=== PATIENT | female | born 1995 | race Two or more races ===

== ENCOUNTER 2025-06-12 16:17 | Emergency (ER) | payer OTHER, SELFPAY ==
[2025-06-12 16:17] VITALS: BMI 31.8
[2025-06-12 16:26] VITALS: BP 135/84; PULSE 62; RESP 16; TEMP 36.7; O2SAT 96
--- NOTE | 2025-06-12 16:40 | PD.EDSKIN ---
ED Skin Abcess FB-RME/HPI General Chief complaint: Skin/Abscess/Foreign Body Stated complaint: FLAIR UP OF ECZEMA Time Seen by Provider: 06/12/25 16:24 Arrival date/time: 06/12/25 16:17 RME / HPI RME / HPI narrative: 30-year-old female patient came in for evaluation regarding rashes noted on the bilateral upper extremity and lateral neck. Patient has significant history of eczema, the last time she had a flareup was several years ago. This time associated with itchiness, and rashes. Denies any difficulty swallowing denies any sore throat denies any shortness of breath. Denies any other complaints. No medication was taken prior to arrival Related Data Home Medications ?Medication ?Instructions ?Recorded ?Confirmed Vitamin * 1 tab PO QDAY #0 tabs 04/16/15 10/18/19 ferrous sulfate 325 mg (65 mg 325 mg PO BIDWM #0 tabs 04/16/15 10/18/19 iron) tablet (Feosol) Previous Rx's ?Medication ?Instructions ?Recorded diphenhydramine HCl 50 mg tablet 50 mg PO TID PRN allergic reaction 06/12/25 (Benadryl Allergy) #30 tabs prednisone 50 mg tablet 50 mg PO QDAY #7 tabs 06/12/25 Allergies Allergy/AdvReac Type Severity Reaction Status Date / Time No Known Allergies Allergy Verified 06/12/25 16:18 Review of Systems Review of Systems Narrative Review of Systems: Review of system reviewed and within normal limits except mentioned in HPI ED Exam Narrative Physical exam: VITAL SIGNS: Reviewed. GENERAL APPEARANCE: Alert and interactive, follows commands, no acute distress, HEAD AND FACE: Non-traumatic. ENT: PERRL, pink conjunctivitis, eyelid no trauma, Mucous membrane moist. NECK: Supple, nontender, no nuchal rigidity. CHEST: No tenderness, no crepitus, no paradoxical movement, no retractions. LUNGS: Clear, well ventilated, symmetric, no rales, no wheezing, no ronchi, no stridor, good breath sounds bilaterally. HEART: Regular rate, regular rhythm, no murmur, no gallops. ABDOMEN: Soft, positive bowel sounds, nondistended, no guarding, nontender, no rebound, no masses, RECTAL: Deferred. GENITAL: Deferred. NEUROLOGICAL: Gross motor function intact sensory function intact, Appropriate for age. MUSCULOSKELETAL: low back nontender, full range of motion. EXTREMITIES: Nontender, full range of motion. SKIN: Color pink, dry, + erythematous rashes on the bilateral upper extremity and lateral leg, no lacerations, no abrasions, no contusions. LYMPHATICS: Deferred. Course Quality Measures none Orders Category Date Time Status Dexamethasone Inj [Decadron Inj] Med 06/12/25 16:40 Discontinued 10 mg IM X1 ONE DiphenhydrAMINE [Benadryl] Med 06/12/25 16:40 Discontinued 50 mg PO X1 ONE Famotidine [Pepcid] Med 06/12/25 16:40 Discontinued 40 mg PO X1 ONE Vital Signs Vital signs: Vital Signs Temperature 98.0 F 06/12/25 16:26 Pulse Rate 62 06/12/25 16:26 Respiratory Rate 16 06/12/25 16:26 Blood Pressure 135/84 H 06/12/25 16:26 Pulse Oximetry (%) 96 06/12/25 16:26 Oxygen Delivery Method Room Air 06/12/25 16:26 Skin / Abscess / Foreign Body MDM Narrative MDM Narrative:: 30-year-old female patient came in for evaluation regarding rashes noted on the bilateral upper extremity and lateral neck. Patient has significant history of eczema, the last time she had a flareup was several years ago. This time associated with itchiness, and rashes. Denies any difficulty swallowing denies any sore throat denies any shortness of breath. Denies any other complaints. No medication was taken prior to arrival Imaging workup is not needed at this time. Patient was given Decadron IM, Pepcid and Benadryl with significant pulm symptoms. Patient was advised to follow-up closely with [employer] program coordinator next week. Patient agrees with the plan Patient data External records reviewed:: None Clinical information provided by:: patient Social determinants that could affect healthcare access:: none Patient has the following chronic illnesses:: None How is presenting disease/condition affected by chronic disease/condition?: no chronic disease Evaluation data The following diagnostics were reviewed and interpreted by me:: other (specify) (None) Lab and/or radiology exams considered but not ordered:: None Interpretation Summary: None Medications / Prescriptions Medications or Prescriptions considered but not ordered:: None Medication administrations:: Medication Administration History Discontinued Medications Dexamethasone Sodium Phosphate (Dexamethasone Sod Phos Inj 10 Mg/Ml Vial) 10 mg IM X1 ONE Stop: 06/12/25 16:41 Last Admin: 06/12/25 16:52 Dose: 10 mg Documented By: Diphenhydramine HCl (Diphenhydramine 25 Mg Capsule) 50 mg PO X1 ONE Stop: 06/12/25 16:41 Last Admin: 06/12/25 16:48 Dose: 50 mg Documented By: Famotidine (Famotidine 20 Mg Tablet) 40 mg PO X1 ONE Stop: 06/12/25 16:41 Last Admin: 06/12/25 16:49 Dose: 40 mg Documented By: Decadron Benadryl Pepcid Consultations Consultation(s) initiated? (list below): No Diagnosis Skin/Abscess Differential Diagnosis: viral exanthem, eczema, insect bites and contact dermatitis Most likely diagnosis given after review of the tests above:: Rash, history eczema Admission Indicated Admission indicated?: not indicated Admission Request Was there a request for admission?: No Disposition Plan Disposition Plan: Discharge Discharge Attestation Discharge Attestation: The patient was given an opportunity to ask questions and understood the discharge instructions. Discharge instructions specifically effects, indications for sooner follow up or return to the emergency department, and the expected course of current diagnosis. Patient condition: Stable Discharge Plan Plan Patient Disposition: HOME (Self Care) Discharge Disposition comment: Stable Prescriptions/Referrals Prescriptions/Med Rec: New prednisone 50 mg tablet 50 mg PO QDAY Qty: 7 0RF Benadryl Allergy 50 mg tablet 50 mg PO TID PRN (Reason: allergic reaction) Qty: 30 0RF No Action Vitamin * 1 EACH tablet 1 tab PO QDAY Qty: 0 ferrous sulfate [Feosol] 1 TAB tablet 325 mg PO BIDWM Qty: 0 Problem List Clinical Impression: Rash, Eczema Patient/Caregiver Discharge Instructions Discharge Activity: activity as tolerated Education Materials: Managing Atopic Dermatitis (Eczema) Additional Instructions: Thank you for the opportunity for serving you today. You are stable for discharged . 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
[2025-06-12] MEDS: FAMOTIDINE 20 MG TABLET 40 MG PO (16:49)
[2025-06-12] MEDS: DEXAMETHASONE SOD PHOS INJ 10 MG/ML VIAL IM (16:52)
== END 2025-06-12 17:10 | disposition home or self-care (01) ==
PROVIDERS: Emergency Provider Emergency Medicine
DX: L30.9 Dermatitis, unspecified (principal)
CPT/HCPCS: 96372; 99283; J1100; A9270